=== PATIENT | male | born 1995 | race Caucasian/White ===

== ENCOUNTER 2016-05-08 09:57 | Emergency (ER) | payer OTHER ==
[~2016-05-08] VITALS: Ht 180.3 cm; Wt 65.6 kg
[2016-05-08 10:00] VITALS: BP 114/68
[2016-05-08] MEDS ORDERED: KETOROLAC 30 MG/1 ML IM ONE (10:30)
[2016-05-08] MEDS ORDERED: KETOROLAC 30 MG/1 ML ONE (10:39)
== END 2016-05-08 11:31 | disposition home or self-care (01) ==
LOC: ED 11:13
DX: S90.31XA Contusion of right foot, initial encounter (principal); M77.51 Other enthesopathy of right foot and ankle; W17.89XA Other fall from one level to another, initial encounter; Y93.89 Activity, other specified; Y92.410 Unspecified street and highway as the place of occurrence of the external cause; Y99.9 Unspecified external cause status
CPT/HCPCS: 73630; 96372; 99284; J1885

== ENCOUNTER 2017-09-27 00:22 | Emergency (ER) | payer OTHER ==
[~2017-09-27] VITALS: Ht 180.3 cm; Wt 64.7 kg
[2017-09-27 01:13] LABS: ANION GAP 7 mmol/L (5-15); CALCIUM 8.6 mg/dL (8.5-10.1); CHLORIDE 107 mmol/L (98-107); CREATININE 0.98 mg/dL (0.7-1.3)
[2017-09-27 01:32] LABS: BASOPHILS # (AUTO) 0.04 x10^3/uL (0-0.3); BASOPHILS % (AUTO) 0 % (0-1); EOSINOPHILS # (AUTO) 0.11 x10^3/uL (0-0.8); EOSINOPHILS % (AUTO) 1 % (1-7); LYMPHOCYTES # (AUTO) 2.08 x10^3/uL (1-6.1); LYMPHOCYTES % (AUTO) 22 % (22-44); MD NO; MEAN CORPUSCULAR HEMOGLOBIN 30.2 pg (27.5-34.5); MEAN CORPUSCULAR HGB CONC 34.3 g/dL (33.2-36.2); MEAN CORPUSCULAR VOLUME 87.9 fL (81-97); MEAN PLATELET VOLUME 7.8 fL (7.4-10.4); MONOCYTES # (AUTO) 0.79 x10^3/uL (0-1.4); MONOCYTES % (AUTO) 8 % (2-9); NEUTROPHILS # (AUTO) 6.39 x10^3/uL (1.8-8.0); NEUTROPHILS % (AUTO) 68 % (42-75); PLATELET COUNT 217 x10^3/uL (130-400); RED BLOOD COUNT 5.37 x10^6/uL (4.38-5.82); RED CELL DISTRIBUTION WIDTH 12.6 % (9.4-14.8)
[2017-09-27 02:11] VITALS: BP 107/62
== END 2017-09-27 02:13 | disposition home or self-care (01) ==
LOC: ED 02:10
DX: R53.1 Weakness (principal); R04.0 Epistaxis
CPT/HCPCS: 36415; 80048; 82040; 85025; 93005; 99285